=== PATIENT | male | born 1945 | race Caucasian/White ===

== ENCOUNTER 2017-09-21 07:51 | Day surgery (SDC) | payer OTHER ==
[2017-09-21] MEDS ORDERED: FENTAnyl 50 MCG/ML VIAL (08:37)
[2017-09-21] MEDS ORDERED: LIDOCAINE 2% (SDV) 5 ML INJ (08:37)
[2017-09-21] MEDS ORDERED: PROPOFOL 20 ML (08:37)
[2017-09-21] MEDS ORDERED: MIDAZOLAM 1 MG/ML 2 ML INJ (08:38)
[2017-09-21] MEDS ORDERED: ALBUTEROL HFA 8 GM INHALER (08:45)
[2017-09-21] MEDS ORDERED: hydrALAzine 20 MG INJ (09:02)
[2017-09-21] MEDS ORDERED: LABETALOL HCL 20MG INJ (09:35)
== END 2017-09-21 11:13 | disposition home or self-care (01) ==
LOC: GIL 07:51
DX: R19.4 Change in bowel habit (principal); D12.5 Benign neoplasm of sigmoid colon; K64.8 Other hemorrhoids; I10 Essential (primary) hypertension; E11.9 Type 2 diabetes mellitus without complications; E78.5 Hyperlipidemia, unspecified; E03.9 Hypothyroidism, unspecified; J45.909 Unspecified asthma, uncomplicated
CPT/HCPCS: 45380; 82962; 88305